=== PATIENT | female | born 1970 | race Caucasian/White ===

== ENCOUNTER → 2017-03-06 | Outpatient (CLI) | payer OTHER ==
[~2017-03-06] MED LIST: CRESTOR20 MG PO; CYCL10TA2 PO; CYCL5TAB PO; HYDR-2762 PO; HYDR-971 PO
[2017-03-06 15:04] LABS: BASO # 0.1 x10^3/uL (0.0-0.2); BASO % 1 % (0-3); EOS % 2 % (0-3); HEMATOCRIT 47.3 % (36.0-47.0); HEMOGLOBIN 15.8 g/dL (12.0-15.5); LYMPH # 2.4 x10^3/uL (1.0-4.8); LYMPH % 24 % (24-48); MEAN CORPUSCULAR HEMOGLOBIN 31 pg (25-35); MEAN CORPUSCULAR HGB CONC 34 g/dL (31-37); MEAN CORPUSCULAR VOLUME 91 fL (79-100); MONO % 5 % (0-9); NEUT % 68 % (31-73); PLATELET COUNT 157 x10^3/uL (140-400); RED BLOOD COUNT 5.17 x10^6/uL (3.50-5.40); RED CELL DISTRIBUTION WIDTH 14.4 % (11.5-14.5); WHITE BLOOD COUNT 9.8 x10^3/uL (4.0-11.0)
[2017-03-06 15:27] LABS: ALBUMIN 3.7 g/dL (3.4-5.0); ALBUMIN/GLOBULIN RATIO 0.9 (1.0-1.7); CALCIUM 8.9 mg/dL (8.5-10.1); CREATININE 0.8 mg/dL (0.6-1.0); GFR 76.6; POTASSIUM 3.9 mmol/L (3.5-5.1); TOTAL BILIRUBIN 0.3 mg/dL (0.2-1.0); TOTAL PROTEIN 7.8 g/dL (6.4-8.2)
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
== END | disposition home or self-care (01) ==
LOC: SURGPAT 16:10
PROVIDERS: ATTEND Neurological Surgery
DX: Z01.812 Encounter for preprocedural laboratory examination (principal)
CPT/HCPCS: 36415; 80053; 85027; 87641

== ENCOUNTER 2017-03-09 08:17 | Inpatient (IN) | payer OTHER ==
[~2017-03-09] VITALS: Ht 149.9 cm; Wt 63.0 kg
[2017-03-09] VITALS (10 sets, daily range): BP systolic 102–129; BP diastolic 69–79
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
[~2017-03-09 08:17] MED LIST changes: +BACITRACIN 50,000 UNIT in IV NORMAL SALINE 1000ML BAG 1,000 ML IRR ONE; +BUPIVACAINE-EPI 0.25%-1:200000 MPF 30 ML VIAL. ONE; -CYCL10TA2 PO; +GELATIN SPONGE SIZE 100. ONE; -HYDR-2762 PO; +HYDROmorphone 2 MG/ML VIAL IV PRN; +IV RINGERS,LACTATED 1000ML 1,000 ML IV SCH; +LIDOCAINE 1% 1 ML SYRINGE. ID PRN; +MORPHINE SULFATE 2 MG/ML DISP.SYRIN. IV PRN; +ONDANSETRON PF 4 MG/2 ML VIAL. IV PRN; +PROCHLORPERAZINE 10 MG/2 ML VIAL. IV PRN; +THROMBIN TOPICAL 20,000 UNIT SPRAY.SYRN KIT TP ONE; +fentaNYL PF VIAL 100 MCG/2 ML VIAL IV PRN
[2017-03-09 09:08] LABS: NEG OBC UR NEG; POS OBC UR POS
[2017-03-09] MEDS ORDERED: PROPOFOL 50 ML IV ONE ×2 (10:02→13:19)
[2017-03-09] MEDS ORDERED: ONDANSETRON PF 4 MG/2 ML VIAL. ONE (10:02)
[2017-03-09] MEDS ORDERED: DEXAMETHASONE SOD PHOS 20 MG/5 ML VIAL. ONE (10:02)
[2017-03-09] MEDS ORDERED: 0.9 % SODIUM CHLORIDE 50 ML VIAL. IJ ONE (10:02)
[2017-03-09] MEDS ORDERED: LIDOCAINE 2% 100 MG/5 ML SYRINGE. ONE (10:02)
[2017-03-09] MEDS ORDERED: MIDAZOLAM HCL/PF 2 MG/2 ML VIAL. ONE (10:02)
[2017-03-09] MEDS ORDERED: PHENYLEPHRINE 10 MG/ML VIAL. ONE (10:02)
[2017-03-09] MEDS ORDERED: REMIFENTANIL 2 MG VIAL. IV ONE (10:02)
[2017-03-09] MEDS ORDERED: PROPOFOL 20 ML IV ONE (10:02)
[2017-03-09] MEDS ORDERED: ROCURONIUM 50 MG/5 ML VIAL. ONE (10:02)
[2017-03-09] MEDS ORDERED: DESFLURANE > 120 MINUTES IH ONE (10:03)
[2017-03-09] MEDS ORDERED: MINERAL OIL/PETROLATUM,WHITE OPHTH OINT 3.5GM TUBE. ONE (10:06)
[2017-03-09] MEDS ORDERED: GLYCOPYRROLATE 1 MG/5 ML VIAL. ONE (11:42)
[2017-03-09] MEDS: VANCOMYCIN 1GM IVPB FOR OMNI 250 ML IV PRN ×2 (12:13→17:06)
[2017-03-09] MEDS ORDERED: ACETAMINOPHEN 325 MG TABLET. PO PRN (14:45)
[2017-03-09] MEDS ORDERED: diphenhydrAMINE 50 MG/ML VIAL IV PRN (14:45)
[2017-03-09] MEDS ORDERED: diphenhydrAMINE HCL 25 MG CAPSULE PO PRN (14:45)
[2017-03-09] MEDS ORDERED: ONDANSETRON PF 4 MG/2 ML VIAL. IV PRN (14:45)
[2017-03-09] MEDS ORDERED: ZOLPIDEM 5 MG TABLET. PO PRN (14:45)
[2017-03-09] MEDS ORDERED: CALCIUM CARBONATE 500 MG TAB.CHEW PO PRN (14:45)
[2017-03-09] MEDS ORDERED: 0.9 % SODIUM CHLORIDE 10 ML DISP.SYRIN. IV PRN (14:45)
[2017-03-09] MEDS ORDERED: MAG HYDROX/ALUMINUM HYD/SIMETH 30 ML ORAL.SUSP PO PRN (14:45)
[2017-03-09] MEDS ORDERED: MAGNESIUM HYDROXIDE 2,400 MG/30 ML ORAL.SUSP. PO PRN (14:45)
[2017-03-09] MEDS: fentaNYL PF VIAL 100 MCG/2 ML VIAL IV PRN ×4 (14:54→16:06)
[2017-03-09] MEDS ORDERED: HYDROcodone/APAP 7.5/325MG 1 TAB TABLET PO PRN (15:00)
[2017-03-09] MEDS ORDERED: fentaNYL PF VIAL 100 MCG/2 ML VIAL IV PRN (15:00)
--- NOTE | 2017-03-09 16:44 | OP ---
DATE OF SURGERY: 03/09/2017 PREOPERATIVE DIAGNOSES: Cervical spinal stenosis with cervical myelopathy, C4-C5. POSTOPERATIVE DIAGNOSIS: Cervical spinal stenosis with cervical myelopathy, C4-C5. OPERATION PERFORMED: Anterior cervical microdiscectomy C4-C5, anterior cervical interbody fusion C4-C5 with allograft and autograft bone, anterior cervical plate C4-C5. The operation was done with EMG monitoring, SSEP monitoring, NIMS monitoring, fluoroscopy, microscopic dissection. SURGEON: Marlo Pond M.D. DIRECTOR MICROBIOLOGY: МАРИНА Clayton, assisted with the surgery. She assisted with the exposure, diskectomy, and placement of the cage and plates as well as the closure. OPERATIVE INDICATIONS: The patient is a pleasant 46-year-old woman who developed intractable numbness in her upper extremities along with pain in her legs and unsteadiness of the gait. On imaging studies, she had focal disc herniation at C4-C5 with spinal cord compression. I recommended an anterior cervical microdiscectomy and fusion. I spoke with her about the operation, the risks, the technique, and the expected postoperative course, and she wished to go ahead. DESCRIPTION OF PROCEDURE: Following general endotracheal anesthesia, the patient was positioned supine on the operating table. The anterior cervical region was then prepped and draped in standard fashion. ARSLAN hose and AV impulse boots were applied for DVT prophylaxis. The microscope was draped. Fluoroscopy was draped and brought into field. Monitoring was established. Vancomycin 1 gram was given. Using fluoroscopic guidance, incision was made from the midline around to the right side in a skin crease directly over the C4-C5 interspace and subcutaneous tissue. Then, I dissected on the medial aspect of the sternocleidomastoid and carotid artery sheath down the anterior cervical vertebral body. I gently reflected the trachea and esophagus contralaterally. There was considerable scar over the anterior areolar tissue. I then worked down through this and exposed the midline and the disc of C4-C5. I confirmed my position fluoroscopically. I placed lateral retractors, wedged in the longus colli muscle and 14-mm pins in C4 and C5. I brought in the microscope, and the remainder of surgery was done with the microscope using a microscopic technique. I distracted the disc space with the disc space entertainment centre manager. I incised the anterior annulus. During this time, I performed a discectomy with pituitary rongeurs. I scrapped away the cartilaginous endplate. Posteriorly, I drilled the posterior spurring and opened the posterior ligament. There was subligamentous disc which was considerable and degenerated, and I began to tease back and remove multiple disc fragments. Some of these scarred down on to the dura, but I did create a plane with a micro hook between the disc and the dura and freed the disc material up and removed it. As I worked, the dura which was focally depressed posteriorly, moved anteriorly. I irrigated it copiously with antibiotic solution. I felt that I had excellent decompression. I then measured and placed a 5-mm interbody fusion cage which was packed with allograft and autograft bone. The autograft bone I obtained from shaving the bone spurs and saving this bone. The plate, cage and bone were placed after I had obtained hemostasis. Then, I placed a 20-mm plate and placed four 13-mm screws which were then locked. I removed the retractors. I obtained images and assured my position was excellent. I irrigated copiously. I explored again. I assured myself of excellent hemostasis. At this point, I felt that I had an excellent decompression and fusion. I closed the platysma with absorbable sutures as well as subcutaneous tissues. Skin was closed with 4-0 subcuticular stitch. The operation went very well. I was quite pleased with the surgery. MARLO POND MD DR: PATSY/adrian JOB#: [id number] / [id number] SUNNI
[2017-03-09] MEDS: POTASSIUM CL 20MEQ D5-0.45NACL 1,000 ML IV SCH (16:50)
[2017-03-09] MEDS ORDERED: ATORVASTATIN CALCIUM 40 MG TABLET. PO SCH (21:00)
[2017-03-09] MEDS: DOCUSATE SODIUM 100 MG CAPSULE. PO SCH (21:02)
[2017-03-09] MEDS: METHOCARBAMOL 750 MG TABLET PO SCH (21:02)
[2017-03-09] MEDS: HYDROcodone/APAP 7.5/325MG 1 TAB TABLET PO PRN (21:03)
[2017-03-10] MEDS ORDERED: VANCOMYCIN 1 GM in IV NORMAL SALINE 250ML 250 ML IV ONE ×2
[2017-03-10 03:00] VITALS: BP 114/71
[2017-03-10] MEDS: HYDROcodone/APAP 7.5/325MG 1 TAB TABLET PO PRN ×2 (04:15→11:09)
[2017-03-10] MEDS: POTASSIUM CL 20MEQ D5-0.45NACL 1,000 ML IV SCH (05:50)
[2017-03-10 06:34] VITALS: BP 119/70
[2017-03-10] MEDS: DOCUSATE SODIUM 100 MG CAPSULE. PO SCH (09:04)
[2017-03-10] MEDS: METHOCARBAMOL 750 MG TABLET PO SCH (09:04)
[2017-03-10 11:17] VITALS: BP 103/72
[2017-03-10] MEDS ORDERED: HYDR-2762 PO (11:49)
[2017-03-10] MEDS ORDERED: CYCL10TA2 PO (11:49)
[2017-03-10] MEDS ORDERED: HYDR-971 PO (11:55)
--- NOTE | 2017-03-10 12:03 | DISCH ---
DISCHARGE INSTRUCTIONS Condition on Discharge Condition on Discharge: Stable Activity After Discharge Activity Instructions for Disc: Activity as tolerated Bathing Instructions: Shower-keep dressing dry (may shower in 48 hours) Lifting Instructions after Dis: No heavy lifting, No pulling or pushing, Do not lift >10 pounds Driving Instructions after Dis: Do not drive Weight Bearing Status after Di: No restrictions Diet after Discharge Additional Diet Restrictions: Resume previous diet Wound Incision Care Wound/Incision Care: Ice to area for comfort Other wound/incision instructi: change dressing if saturated. Contacting the after DC Call your doctor for: Concerns you may have Follow-Up Follow up with: 's nurse in 2 weeks. [phone] YOAN POND MD Mar 10, 2017 12:03
--- NOTE | 2017-03-13 16:50 | PATHOLOGY ---
PATHOLOGY REPORT * * * * * * * * FINAL DIAGNOSIS: Segments of fibrocartilaginous tissue and bone, cervical disc: - Degenerative changes of fibrocartilaginous tissue. COMMENT: There is no evidence of an acute inflammatory process or malignancy. (JPM:; d/t: 03/13/17) REPORT ELECTRONICALLY SIGNED BY: Donaldo Poole M.D. DATE/TIME: 03/13/2017 16:48 * * * * * * * * GROSS PATHOLOGY: Received in formalin labeled "Alina Goldstein cervical disc" are multiple segments of vogel, rubbery, and gritty tissue admixed with bone. The specimen measures 3.0 x 2.5 x 0.5 cm in aggregate dimensions. The tissue is submitted entirely in cassette A1, following decalcification. (CAA; 03/10/2017) INITIAL CPT CODE(S): A; 27457, 07273 Professional services performed [place] [facility] [place] [address] Technical services performed by [facility] at [address] [place] [address]. SPECIMEN(S) RECEIVED: A.Cervical disc CLINICAL HISTORY: Stenosis, cervical herniated disc with radiculopathy PATIENT: ALINA GOLDSTEIN /AGE: 112/07/1970 (Age: 46) PATIENT #: [id number] ALT CASE #: SPECIMEN COLLECTION DATE: 03/09/2017 SPECIMEN RECEIVED DATE: 03/10/2017 [facility] - [address] [place] [address] - PHONE: [phone] * * * END OF REPORT * * *
== END 2017-03-10 12:30 | disposition home or self-care (01) | DRG 472 ==
LOC: SURG 08:17 → 4 SOUTHEST 15:57 → 4 SOUTHWST 16:34
PROVIDERS: ADMIT Neurological Surgery; ATTEND Neurological Surgery
PROC: 0RB30ZZ Excision of Cervical Vertebral Disc, Open Approach (ICD-10-PCS; 2017-03-09)
PROC: 4A10X4Z Monitoring of Central Nervous Electrical Activity, External Approach (ICD-10-PCS; 2017-03-09)
PROC: 0RG10A0 Fusion of Cervical Vertebral Joint with Interbody Fusion Device, Anterior Approach, Anterior Column, Open Approach (ICD-10-PCS; principal; 2017-03-09 11:00)
DX: M48.02 Spinal stenosis, cervical region (principal); M50.021 Cervical disc disorder at C4-C5 level with myelopathy; M50.121 Cervical disc disorder at C4-C5 level with radiculopathy; F17.200 Nicotine dependence, unspecified, uncomplicated; Z87.442 Personal history of urinary calculi
CPT/HCPCS: 76000; 81025; 88304; 88311; 99406; C1713; J1100; J2250; J2405; J2704; J3010; J3370; J3490; J7030; J7050; 97530

== ENCOUNTER → 2019-03-20 | Outpatient (CLI) | payer OTHER ==
[~2019-03-20] MED LIST changes: -BACITRACIN 50,000 UNIT in IV NORMAL SALINE 1000ML BAG 1,000 ML IRR ONE; -BUPIVACAINE-EPI 0.25%-1:200000 MPF 30 ML VIAL. ONE; +CYCL10TA2 PO; -GELATIN SPONGE SIZE 100. ONE; +HYDR-2765 PO; +HYDR-3164 PO; -HYDR-971 PO; -HYDROmorphone 2 MG/ML VIAL IV PRN; -IV RINGERS,LACTATED 1000ML 1,000 ML IV SCH; -LIDOCAINE 1% 1 ML SYRINGE. ID PRN; -MORPHINE SULFATE 2 MG/ML DISP.SYRIN. IV PRN; -ONDANSETRON PF 4 MG/2 ML VIAL. IV PRN; -PROCHLORPERAZINE 10 MG/2 ML VIAL. IV PRN; -THROMBIN TOPICAL 20,000 UNIT SPRAY.SYRN KIT TP ONE; -fentaNYL PF VIAL 100 MCG/2 ML VIAL IV PRN
--- NOTE | 2019-03-20 12:06 | KCIC ---
EXAMINATION: Magnetic resonance imaging (MRI) of the lumbar spine without contrast 03/20/2019 11:45 AM HISTORY: Lumbar radiculopathy and spondylolisthesis. New onset low back pain to the bilateral lower extremities, right greater than left. Numbness in the right lower extremity. TECHNIQUE: Multiplanar multi-weighted MRI of the lumbar spine was performed without intravenous contrast using the standard lumbar spine protocol. Contrast information: None administered. COMPARISON: None available. FINDINGS: The alignment of the lumbar spine is normal. Vertebral bodies demonstrate normal signal intensity on all sequences. There are no compression fractures. The conus medullaris terminates at the level of L1. The distal spinal cord signal intensity is normal. Mild disc height loss with disc desiccation at L5-S1. There is Modic type II endplate degenerative changes along the endplates at this level with mild anterior marginal osteophytosis. There is a faint annular fissure at this level. Limited views of the abdomen and pelvis show no soft tissue abnormality. The aorta is normal. L2-L3: The disc is normal in configuration. There is no facet arthropathy. There is no neuroforaminal stenosis. There is no spinal canal stenosis. L3-L4: The disc is normal in configuration. There is no facet arthropathy. There is no neuroforaminal stenosis. There is no spinal canal stenosis. L4-L5: The disc is normal in configuration. There is mild right and moderate left facet arthropathy. There is no neuroforaminal stenosis. There is no spinal canal stenosis. L5-S1: There is a mild disc bulge with central disc protrusion. There is moderate to severe bilateral facet arthropathy with fluid in the facet joints. There is a posteriorly oriented left facet cyst measuring 10 mm. There is no neuroforaminal stenosis. There is no spinal canal stenosis. IMPRESSION: Mild degenerative changes of the lumbar spine as described in detail above. There is moderate to advanced facet arthropathy at L5-S1 with mild degenerative disc disease. Electronically signed by: Freda Montoya MD (03/20/2019 12:03 PM) [facility]
== END | disposition home or self-care (01) ==
LOC: KCIC MRI 11:04
PROVIDERS: ATTEND Neurological Surgery
DX: M51.17 Intervertebral disc disorders with radiculopathy, lumbosacral region (principal); M51.27 Other intervertebral disc displacement, lumbosacral region; M12.88 Other specific arthropathies, not elsewhere classified, other specified site; M47.896 Other spondylosis, lumbar region
CPT/HCPCS: 72148

== ENCOUNTER → 2019-03-28 | Outpatient (CLI) | payer OTHER ==
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
== END | disposition home or self-care (01) ==
LOC: PNCL 10:00
PROVIDERS: ATTEND Anesthesiology
DX: M54.12 Radiculopathy, cervical region (principal); M79.602 Pain in left arm; M19.90 Unspecified osteoarthritis, unspecified site; I10 Essential (primary) hypertension; E78.00 Pure hypercholesterolemia, unspecified; F17.210 Nicotine dependence, cigarettes, uncomplicated; Z88.0 Allergy status to penicillin; Z98.1 Arthrodesis status; Z85.41 Personal history of malignant neoplasm of cervix uteri; Z86.73 Personal history of transient ischemic attack (TIA), and cerebral infarction without residual deficits
CPT/HCPCS: G0463

== ENCOUNTER → 2019-04-11 | Outpatient (CLI) | payer OTHER ==
[~2019-04-11] MED LIST changes: +IOHEXOL 180 MG/ML 10 ML VIAL. ONE; +methylPREDNISolone ACETATE 40 MG/ML VIAL. ONE; +methylPREDNISolone ACETATE 80 MG/ML VIAL. ONE
--- NOTE | 2019-04-12 03:07 | PAIN ---
DATE OF SERVICE: 04/11/2019 DIAGNOSES: Cervical radiculopathy with cervical degenerative disk disease and post-cervical laminectomy syndrome. HISTORY OF PRESENT ILLNESS: The patient is a 48-year-old female who returns for followup status post initial evaluation and preauthorization for cervical epidural steroid injection, still significant pain in the base of the neck and left upper extremity as it was previously. The patient reports it is a 9 on a scale of 10 at the worse in the last week and 8 on average and 4 is least and is 8 today. The patient reports it is aching, shooting, tingling, stabbing, becoming more constant, again worse with weightbearing, repetitive motions, reaching over her head, with the left arm. The patient reports no new motor or sensory deficits or other changes. Still awaken her from sleep about 4-5 hours at home. PHYSICAL EXAMINATION: VITAL SIGNS: Blood pressure 120/80, pulse is 78, respirations 18, temperature 98.0 degrees Fahrenheit, height is 4 feet 11 inches, weight is 150 pounds. GENERAL: The patient is awake, alert, oriented, appropriate, very pleasant demeanor. HEENT: Head shows normocephalic and atraumatic. Extraocular muscles are intact and symmetrical. Oral cavity: Mucous membranes moist and pink. Dentition is intact. NECK: Shows anterior throat supple without palpable lymphadenopathy noted. Swallow reflex is symmetrical. CHEST: Shows normal with inspection. Breath sounds clear to auscultation bilaterally. HEART: Shows S1, S2 clear. No murmurs auscultated. ABDOMEN: Soft, nontender, nondistended. No palpable organomegaly is noted. No rebound or guarding demonstrated. BACK: Shows spine grossly in the midline. Normal appearing cervical lordotic curvature as well as thoracic kyphotic curvature and lumbar lordotic curvature. Cervical paraspinous muscle shows symmetrical on inspection, on palpation shows some moderate tenderness diffusely bilaterally, but only diffusely without significant radiation. EXTREMITIES: The patient's upper extremities show deep tendon reflexes 2+ in the biceps, triceps tendons. Motor exam is approximately 4 on a scale of 5, but equal with flag car driver strength bicep and tricep flexion and are symmetrical. Peripheral pulses are 2+ radial distribution. No peripheral edema is noted bilaterally. Options were discussed with the patient. The patient's old chart was reviewed as her current medication regimen updated. Current review of systems updated today as well. Reviewed procedure today was cervical epidural steroid injection, the first in this series. Risks were again discussed including, but not limited to bleeding, infection, possibility of epidural hematoma, subsequent neurological compromise, dural puncture, headaches, spinal cord and/or nerve damage, side effects of steroid medication and poor results regarding pain control. The patient understands and wished to proceed. The patient will return to clinic in approximately 2 weeks for followup and was counseled on return appointment, activity level and side effects to be aware of. . DIAGNOSES: Cervical radiculopathy with cervical degenerative disk disease and cervical post-laminectomy syndrome. PROCEDURE: Cervical epidural steroid injection, translaminar approach C6-C7 level using C-arm fluoroscopic guidance under sterile prep and drape using local anesthetic. MEDICATION INJECTED: A total of 120 mg Depo-Medrol plus 5 mL of preservative-free normal saline and 2 mL of Isovue for contrast. CONDITION AT DISCHARGE: Stable. The patient tolerated procedure well, had no complications. MARCIE FLOWERS MD DR: LUCRETIA/adrian JOB#: [id number] / [id number]
== END ==
LOC: PNCL 09:24
PROVIDERS: ATTEND Anesthesiology
DX: M50.123 Cervical disc disorder at C6-C7 level with radiculopathy (principal); M54.2 Cervicalgia
CPT/HCPCS: 62321; J1030; J1040; Q9965

== ENCOUNTER → 2019-04-25 | Outpatient (CLI) | payer OTHER ==
[~2019-04-25] MED LIST changes: -IOHEXOL 180 MG/ML 10 ML VIAL. ONE; -methylPREDNISolone ACETATE 40 MG/ML VIAL. ONE; -methylPREDNISolone ACETATE 80 MG/ML VIAL. ONE
--- NOTE | 2019-04-25 15:54 | PAIN ---
DATE OF SERVICE: 04/25/2019 PROGRESS NOTE FOR PAIN CLINIC DIAGNOSES: Cervical radiculopathy with cervical degenerative disk disease and cervical post-laminectomy syndrome. HISTORY OF PRESENT ILLNESS: The patient is a 48-year-old female who returns for followup status post cervical epidural steroid injection x 1. The patient reports about 60% improvement initially with the numbness in her left arm now completely gone, still some pain in the base of the neck and shoulders and some radiation into the left shoulder and upper extremity, but the numbness part is completely resolved. The patient reports she is feeling much better with increasing her activity, greater distance walking, greater ability to use her left upper extremity, better ability to rotate her neck and shoulders as well. The patient reports she still has some significant pain in the base of the neck and more on the left shoulder and arm. She rates it as 9 on a scale of 10 at its worst over the past week, 7 on average, 5 at its least and is a 5 today. The patient reports it is aching and shooting, radiating in the left upper extremity following a C5-C6 dermatomal distribution. The patient reports it does not awaken her from sleep any longer. She is sleeping about 8 hours a night and is doing much better in that respect. The patient reports no new motor or sensory deficits, no new bowel or bladder incontinence or other complaints. PHYSICAL EXAMINATION: VITAL SIGNS: The patient's blood pressure is 117/77, pulse 77, respirations 18, temperature is 98.3 degrees Fahrenheit. Height is 4 feet 11 inches, weight is 151 pounds. GENERAL: The patient is awake, alert, oriented, appropriate, very pleasant demeanor. HEENT: Head is normocephalic, atraumatic. Extraocular movements are intact and symmetrical. Oral cavity: Mucous membranes moist and pink. Dentition is in poor condition, but intact. NECK: Shows anterior throat supple without palpable lymphadenopathy noted. Swallow reflex symmetrical. CHEST: Shows normal with inspection. Breath sounds clear to auscultation bilaterally. HEART: Shows S1, S2 clear. No murmurs auscultated. ABDOMEN: Soft, nontender, nondistended. BACK: Shows spine grossly in the midline. Cervical paraspinous musculature shows symmetrical on inspection, with a normal appearing to slightly flattened cervical lordotic curvature. The patient's paraspinous musculature in the cervical distribution shows moderate tenderness with palpation, but only diffusely without significant radiation. The patient shows some limited rotational motion secondary to pain with right and left lateral rotation as well as extension, but performs these with some moderate tenderness in the base of the shoulder and to the left shoulder greater than the right with rotation and motion. EXTREMITIES: The patient's upper extremities show deep tendon reflexes 2+ in the biceps and triceps tendons. Motor exam is approximately 4 on a scale of 5, but equal and symmetrical with hydrochloric area supervisor strength, bicep and tricep flexion bilaterally. Peripheral pulses are 2+ in radial distribution. No peripheral edema is noted. PLAN: Options were discussed with the patient. The patient's old chart was reviewed as well as her current medication regimen updated. Current review of systems updated today as well. We will preauthorize the patient for a second cervical epidural steroid injection. She is doing quite well after the first about 60% improvement in the left upper extremity with radicular pattern still in the C5-C6 dermatomal distribution, but significantly improved. The patient will return for a translaminar approach C5-C6 level cervical epidural steroid injection in approximately 1 week after preauthorization is obtained. The patient will continue with stretching and strengthening exercises on her own. Continue with activity as tolerated and will follow up as scheduled. MARCIE FLOWERS MD DR: LUCRETIA/adrian JOB#: [id number] / [id number]
== END | disposition home or self-care (01) ==
LOC: PNCL 09:18
PROVIDERS: ATTEND Anesthesiology
DX: M50.10 Cervical disc disorder with radiculopathy, unspecified cervical region (principal); M96.1 Postlaminectomy syndrome, not elsewhere classified
CPT/HCPCS: G0463

== ENCOUNTER → 2019-05-09 | Outpatient (CLI) | payer OTHER ==
[~2019-05-09] MED LIST changes: +IOHEXOL 180 MG/ML 10 ML VIAL. ONE; +methylPREDNISolone ACETATE 40 MG/ML VIAL. ONE; +methylPREDNISolone ACETATE 80 MG/ML VIAL. ONE
--- NOTE | 2019-05-09 12:34 | PAIN ---
DATE OF SERVICE: 05/09/2019 PROGRESS NOTE FOR PAIN CLINIC DIAGNOSES: Cervical radiculopathy with cervical degenerative disk disease and post-cervical laminectomy syndrome. HISTORY OF PRESENT ILLNESS: The patient is a 48-year-old female who returns for followup status post cervical epidural steroid injection x 1 and preauthorization for second injection. She has obtained this and would like to proceed today. The patient still has pain in the left upper extremity, base of the shoulder, left triceps, anterior and biceps as well as the forearm with radiating pain into the thumb and first finger on the left side. The patient reports it is much better, but still has significant pain in that region. The patient reports it is aching, sharp, shooting, tingling, becoming more constant, radiating with activity with weightlifting or weightbearing in the left upper extremity, reaching overhead. The patient reports it is a 9 on a scale of 10 at its worst in the past week, 7 on average, 5 at its least and is a 5 today. The patient reports no new motor or sensory deficits, no new bowel or bladder incontinence, awakens her from sleep occasionally, but not every night. PHYSICAL EXAMINATION: VITAL SIGNS: The patient's blood pressure 118/80, pulse 84, respirations 18, temperature is 98.4 degrees Fahrenheit, height is 4 feet 11 inches and weight is 153 pounds. GENERAL: The patient is awake, alert, oriented, appropriate, very pleasant demeanor. HEENT: Shows normocephalic, atraumatic. Extraocular movements intact and symmetrical. Oral cavity: Mucous membranes are moist and pink. Dentition is intact. NECK: Shows anterior throat supple without palpable lymphadenopathy noted. Swallow reflex symmetrical. CHEST: Shows normal on inspection. Breath sounds clear to auscultation bilaterally. HEART: Shows S1, S2 clear. No murmurs auscultated. ABDOMEN: Soft, nontender, nondistended. No palpable organomegaly is noted. No rebound or guarding demonstrated. BACK: Shows spine grossly in the midline. Normal appearing thoracic kyphosis and lumbar lordotic curvature. Cervical lordotic curvature shows some slight flattening. With palpation shows some moderate tenderness in the paraspinous musculature, but they are symmetrical on appearance. The patient has good rotational motion of cervical spine, both laterally as well as extension and flexion without significant increase in pain. EXTREMITIES: Upper extremities show deep tendon reflexes 2+ in the biceps and triceps tendons. Motor exam is strong with approximately 4 on a scale of 5, but equal and symmetrical with hogshead stock clerk strength, bicep and tricep flexion. Peripheral pulses are 2+ in radial distribution. No peripheral edema is noted bilaterally. PLAN: Options were discussed with the patient. The patient's old chart was reviewed as her current medication regimen updated. Current review of systems updated today as well. We will proceed with a second in this series of cervical epidural steroid injection today with fluoroscopic guidance. Risks were again discussed including, but not limited to bleeding, infection, possibility of epidural hematoma, subsequent neurologic compromise, dural puncture, headaches, spinal cord and/or nerve damage, side effects of steroid medication and poor results regarding pain control. The patient understands and wished to proceed. The patient will return to the clinic in approximately 2 weeks for followup. She was counseled on return appointment, activity level and side effects to be aware of. DIAGNOSES: Cervical radiculopathy with cervical degenerative disk disease and cervical post-laminectomy syndrome. PROCEDURE: Cervical epidural steroid injection, translaminar approach C6-C7 level using C-arm fluoroscopic guidance under sterile prep and drape using local anesthetic. MEDICATION INJECTED: A total of 120 mg Depo-Medrol plus 5 mL of preservative-free normal saline and 2 mL of Isovue for contrast. CONDITION AT DISCHARGE: Stable. The patient tolerated procedure well, had no complications. MARCIE FLOWERS MD DR: LUCRETIA/adrian JOB#: [id number] / [id number]
== END ==
LOC: PNCL 08:46
PROVIDERS: ATTEND Anesthesiology
DX: M50.123 Cervical disc disorder at C6-C7 level with radiculopathy (principal)
CPT/HCPCS: 62321; J1030; J1040; Q9965

== ENCOUNTER → 2019-06-06 | Outpatient (CLI) | payer OTHER ==
[~2019-06-06] MED LIST changes: -IOHEXOL 180 MG/ML 10 ML VIAL. ONE; -methylPREDNISolone ACETATE 40 MG/ML VIAL. ONE; -methylPREDNISolone ACETATE 80 MG/ML VIAL. ONE
--- NOTE | 2019-06-06 22:14 | PAIN ---
DATE OF SERVICE: 06/06/2019 PROGRESS NOTE FOR PAIN CLINIC DIAGNOSES: Cervical radiculopathy with cervical degenerative disk disease and post-cervical laminectomy syndrome. HISTORY OF PRESENT ILLNESS: The patient is a 48-year-old female who returns for followup status post cervical epidural steroid injection x 2. The patient reports about a 75% improvement initially, now about 50% improvement overall with the pain returning in the left upper extremity with some tingling and numbness, which had gone away initially, now returning in the left hand. The patient reports it is 8 on a scale of 10 at its worst over the past week, 6 on average, 3 at its least and is a 3 today. The patient reports some tingling, aching, radiating pain, numbness, shooting down into the shoulder, into the arm, posterior triceps, into the forearm, both anteriorly and posteriorly into the thumb and first and second fingers with numbness and tingling in the hand as well. The patient reports no new motor or sensory deficits and no new changes, has been awakening her from sleep at night about every 4 hours if she lays on her left side especially. The patient reports no new deficits. PHYSICAL EXAMINATION: VITAL SIGNS: The patient's blood pressure 121/85, pulse 79, respirations 18 and temperature 98.5 degrees Fahrenheit. Height is 4 feet 11 inches and weighs 155 pounds. GENERAL: The patient is awake, alert, oriented, appropriate and very pleasant demeanor. HEENT: Head is normocephalic and atraumatic. Extraocular movements are intact and symmetrical. Oral cavity, mucous membranes are moist and pink. Dentition intact. NECK: Shows anterior throat supple without palpable lymphadenopathy noted. Swallow reflex is symmetrical. CHEST: Shows normal with inspection. Breath sounds are clear to auscultation bilaterally. HEART: Shows S1 and S2 clear. ABDOMEN: Soft and nontender. BACK: Shows spine grossly in the midline. Cervical lordotic curvature slightly flattened. Cervical paraspinous musculature shows symmetrical on inspection, on palpation shows some moderate tenderness diffusely bilaterally but only diffusely without radiation. Good rotational motion is maintained both laterally greater than 45 degrees as well as extension and flexion without significant pain reported. EXTREMITIES: Upper extremities show deep tendon reflexes 2+ in the biceps, triceps tendons. Motor exam is approximately 4 on a scale of 5 but equal and symmetrical with java tech lead strength, bicep and tricep flexion. Peripheral pulses are 2+ radial distribution. No peripheral edema is noted. Options were discussed with the patient. The patient's old chart was reviewed as well as current medications regimen updated. Current review of systems updated today as well. We will preauthorize the patient for a third in the series of cervical epidural steroid injection. She still has radicular qualities into the C5-C6 dermatomal distribution on the left side. We will plan on the C5-C6 level, translaminar epidural steroid injection after approval. The patient will continue to do stretching and strengthening exercises on her own, maintain activity as tolerated and will follow up for a third cervical epidural steroid injection as scheduled. MARCIE FLOWERS MD DR: LUCRETIA/nts JOB#: [id number] / [id number]
== END | disposition home or self-care (01) ==
LOC: PNCL 07:59
PROVIDERS: ATTEND Anesthesiology
DX: M50.10 Cervical disc disorder with radiculopathy, unspecified cervical region (principal); M96.1 Postlaminectomy syndrome, not elsewhere classified
CPT/HCPCS: G0463

== ENCOUNTER → 2019-10-02 | Outpatient (CLI) | payer OTHER ==
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
== END | disposition home or self-care (01) ==
LOC: KCIC MRI 08:52
PROVIDERS: ATTEND Neurological Surgery
DX: M47.812 Spondylosis without myelopathy or radiculopathy, cervical region (principal); M50.21 Other cervical disc displacement, high cervical region; M48.02 Spinal stenosis, cervical region; Z98.1 Arthrodesis status
CPT/HCPCS: 72141

== ENCOUNTER → 2019-11-01 | Outpatient (CLI) | payer OTHER ==
[~2019-11-01] MED LIST changes: +DOCU-153 PO; +HYDR-2761 PO; +METH750T2 PO
[2019-11-01 13:52] LABS: BASO # 0.1 x10^3/uL (0.0-0.2); BASO % 1 % (0-3); EOS # 0.2 x10^3/uL (0.0-0.7); EOS % 2 % (0-3); HEMATOCRIT 48.5 % (36.0-47.0); HEMOGLOBIN 16.2 g/dL (12.0-15.5); LYMPH # 2.6 x10^3/uL (1.0-4.8); LYMPH % 29 % (24-48); MEAN CORPUSCULAR HEMOGLOBIN 31 pg (25-35); MEAN CORPUSCULAR HGB CONC 33 g/dL (31-37); MEAN CORPUSCULAR VOLUME 92 fL (79-100); MONO # 0.4 x10^3/uL (0.0-1.1); MONO % 5 % (0-9); NEUT # 5.6 x10^3/uL (1.8-7.7); NEUT % 64 % (31-73); PLATELET COUNT 180 x10^3/uL (140-400); RED BLOOD COUNT 5.29 x10^6/uL (3.50-5.40); WHITE BLOOD COUNT 8.9 x10^3/uL (4.0-11.0)
[2019-11-01 14:09] LABS: ALBUMIN 3.9 g/dL (3.4-5.0); CALCIUM 9.7 mg/dL (8.5-10.1); CREATININE 0.8 mg/dL (0.6-1.0); GFR 75.9; POTASSIUM 3.8 mmol/L (3.5-5.1); TOTAL BILIRUBIN 0.3 mg/dL (0.2-1.0)
== END | disposition home or self-care (01) ==
LOC: SURGPAT 12:36
PROVIDERS: ATTEND Neurological Surgery
DX: Z01.818 Encounter for other preprocedural examination (principal); M47.22 Other spondylosis with radiculopathy, cervical region; Z98.1 Arthrodesis status; Z88.8 Allergy status to other drugs, medicaments and biological substances; Z88.5 Allergy status to narcotic agent; Z88.1 Allergy status to other antibiotic agents
CPT/HCPCS: 36415; 80053; 85025; 87641

== ENCOUNTER 2019-11-11 06:56 | Observation (INO) | payer OTHER ==
--- NOTE | 2019-11-08 17:26 | HP ---
ADMIT DATE: 11/11/2019 PREOPERATIVE HISTORY AND PHYSICAL. DATE OF SURGERY: 11/11/2019 HISTORY OF PRESENT ILLNESS: The patient is a pleasant 48-year-old who has neck and left shoulder and arm pain. She says the pain is more constant now, the problem began in 10/2018 and has slowly worsened. She says her pain can reach a 10/10 with activity or looking down. Heat or lying down helps her. She is not taking any pain medication. She had 3 cervical epidural steroid injections, which helped her for a couple of weeks each. Since her last visit, she has had 2 falls. She fell once when she tripped over her cat and once because she lost her balance. She also reports low back pain that radiates into her right hip and right lateral thigh. Her leg is also affected on the right side. PAST MEDICAL HISTORY: Headaches or migraines, kidney stones, stomach or intestinal disease, ulcers, arthritis. PAST SURGICAL HISTORY: in 1987, in 2003, 2009, ACDF C4-C5 in 02/2017. FAMILY HISTORY: Cancer, CAD, spine problems, migraine problems, hypertension. 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 Exercises daily. Half a pack per day smoker for 20 years. Drinks zero alcohol. Drinks caffeine regularly. ALLERGIES: AMOXICILLIN, ATORVASTATIN, SIMVASTATIN, LEVOFLOXACIN AND ARTIFICIAL SWEETENERS. CURRENT MEDICATIONS: Crestor and ibuprofen. REVIEW OF SYSTEMS: A 12-point review of systems was obtained and is noncontributory except that mentioned above. PHYSICAL EXAMINATION: NEUROSURGERY EXAMINATION: GENERAL APPEARANCE: Alert, pleasant, no acute distress. HEAD: Normocephalic and atraumatic. SKIN: Warm and dry. NECK AND THYROID: Uyde-[id number]-hixomtuz tenderness with palpation of posterior cervical region, well-healed incision. BACK: Mild tenderness with palpation of lower lumbar spine. MUSCULOSKELETAL: Cervical paraspinal muscle bulk is normal, her cervical restricted range of normal, normal range of motion of the upper extremities bilaterally. EXTREMITIES: No clubbing, cyanosis or edema. NEUROLOGIC: Alert and oriented x 3, normal recent and remote memory. Strength 5/5 in bilateral lower extremities. Sensory was intact to light touch in the upper and lower extremities. Reflexes are present and symmetric in the upper and lower extremities bilaterally. Ambulates with a cane. IMAGING: I reviewed a cervical MRI scan from 02/2019. On that study, there are postoperative changes from an ACDF at C4-C5. At C5-C6, there was a disc osteophyte complex central and left-sided as well as moderately severe bilateral neural foraminal narrowing. ASSESSMENT/ PLAN: The problem has been present for approximately 1 year. She has not improved significantly with epidural steroid injections. I recommended an ACDF at C5-C6. We spoke about the surgery including the rationale, technique, risks, and expected postoperative course. She understands. She would like to proceed. We will make the arrangements. YOAN POND MD DR: PATSY/adrian JOB#: [id number] / [id number] SUNNI
[2019-11-11] VITALS (9 sets, daily range): BP systolic 109–135; BP diastolic 68–86
[~2019-11-11] VITALS: Ht 149.9 cm; Wt 69.4 kg
[~2019-11-11 06:56] MED LIST changes: +BACITRACIN 50,000 UNIT in IV NORMAL SALINE 1000ML BAG 1,000 ML IRR ONE; +BUPIVACAINE-EPI 0.5%-1:200000 MPF 30 ML VIAL. INJ ONE; -DOCU-153 PO; -HYDR-2761 PO; -METH750T2 PO
[2019-11-11] MEDS ORDERED: THROMBIN TOPICAL 20,000 UNIT SPRAY.SYRN KIT TP ONE (07:20)
[2019-11-11] MEDS ORDERED: GELATIN SPONGE SIZE 100. ONE (07:20)
[2019-11-11] MEDS ORDERED: IV RINGERS,LACTATED 1000ML 1,000 ML IV SCH ×2 (08:00→08:12)
[2019-11-11] MEDS ORDERED: ROCURONIUM 50 MG/5 ML VIAL. ONE (08:07)
[2019-11-11] MEDS ORDERED: REMIFENTANIL 2 MG VIAL. IV ONE (08:07)
[2019-11-11] MEDS ORDERED: GLYCOPYRROLATE 1 MG/5 ML VIAL. ONE (08:07)
[2019-11-11] MEDS ORDERED: PHENYLEPHRINE 10 MG/ML VIAL. ONE (08:08)
[2019-11-11] MEDS ORDERED: LIDOCAINE 2% PF 5 ML VIAL. ONE (08:08)
[2019-11-11] MEDS ORDERED: KETOROLAC 30 MG/ML VIAL. ONE (08:08)
[2019-11-11] MEDS ORDERED: ONDANSETRON PF 4 MG/2 ML VIAL. ONE (08:08)
[2019-11-11] MEDS ORDERED: DEXAMETHASONE SOD PHOS 20 MG/5 ML VIAL. ONE (08:08)
[2019-11-11] MEDS ORDERED: PROPOFOL 20 ML IV ONE (08:08)
[2019-11-11] MEDS ORDERED: DESFLURANE > 120 MINUTES IH ONE (08:08)
[2019-11-11] MEDS ORDERED: PROPOFOL 50 ML IV ONE ×2 (08:08→09:31)
[2019-11-11] MEDS ORDERED: ONDANSETRON PF 4 MG/2 ML VIAL. IV PRN (08:15)
[2019-11-11] MEDS ORDERED: MORPHINE SULFATE 2 MG/ML VIAL. IV PRN (08:15)
[2019-11-11] MEDS ORDERED: fentaNYL PF VIAL 100 MCG/2 ML VIAL IV PRN (08:15)
[2019-11-11] MEDS ORDERED: HYDROmorphone 2 MG/ML VIAL IV PRN (08:15)
[2019-11-11] MEDS ORDERED: PROCHLORPERAZINE 10 MG/2 ML VIAL. IV PRN (08:15)
[2019-11-11] MEDS ORDERED: MIDAZOLAM HCL/PF 2 MG/2 ML VIAL. ONE (08:22)
[2019-11-11] MEDS: VANCOMYCIN 1GM IVPB FOR OMNI 250 ML IV PRN ×2 (08:45→12:51)
[2019-11-11] MEDS ORDERED: ePHEDrine PF IN SALINE 50 MG/10 ML SYRINGE. IV ONE (09:17)
[2019-11-11] MEDS ORDERED: NEOSTIGMINE METHYLSULFATE 5 MG/5 ML SYRINGE. ONE (09:45)
[2019-11-11] MEDS ORDERED: fentaNYL PF VIAL 100 MCG/2 ML VIAL ONE (11:22)
[2019-11-11] MEDS ORDERED: PROCHLORPERAZINE 10 MG/2 ML VIAL. ONE (11:22)
[2019-11-11] MEDS: fentaNYL PF VIAL 100 MCG/2 ML VIAL IV PRN ×4 (11:49→12:30)
[2019-11-11] MEDS ORDERED: fentaNYL PF VIAL 100 MCG/2 ML VIAL IVP PRN (12:00)
[2019-11-11] MEDS ORDERED: CALCIUM CARBONATE 500 MG TAB.CHEW PO PRN (12:00)
[2019-11-11] MEDS ORDERED: 0.9 % SODIUM CHLORIDE 10 ML DISP.SYRIN. IV PRN (12:00)
[2019-11-11] MEDS ORDERED: MAGNESIUM HYDROXIDE 2,400 MG/30 ML ORAL.SUSP. PO PRN (12:00)
[2019-11-11] MEDS ORDERED: ONDANSETRON PF 4 MG/2 ML VIAL. IVP PRN (12:00)
[2019-11-11] MEDS ORDERED: MAG HYDROX/ALUMINUM HYD/SIMETH 30 ML ORAL.SUSP PO PRN (12:00)
[2019-11-11] MEDS ORDERED: ACETAMINOPHEN 325 MG TABLET. PO PRN (12:00)
[2019-11-11] MEDS ORDERED: NALOXONE 0.4 MG/ML VIAL. IV PRN (12:00)
[2019-11-11] MEDS ORDERED: diphenhydrAMINE HCL 25 MG CAPSULE PO PRN (12:00)
[2019-11-11] MEDS ORDERED: ZOLPIDEM 5 MG TABLET. PO PRN (12:00)
[2019-11-11] MEDS ORDERED: METHOCARBAMOL 750 MG TABLET PO PRN (12:00)
[2019-11-11] MEDS ORDERED: HYDROcodone/APAP 5/325MG 1 TAB TABLET PO PRN (12:00)
--- NOTE | 2019-11-11 12:45 | NUR ---
RECEIVED FROM RECOVERY. SHE IS RATING HER PAIN A"8-9" MEDICATED WITH FENTANYL. AMBULATED TO THE BATHROOM WITH ASSIST OF 2; UNSTEADY GAIT. SHE WAS ABLE TO VOID WITHOUT PROBLEMS. SHE IS COMPLAINING OF A SORE THROAT AND SOME NUMBNESS AND TWITCHING IN HER LEFT HAND. TWITCHING IS NEW. 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 SHE HAS GOOD PULSES AND MOTION BILATERAL HANDS. DRESSING TO RIGHT LATER ANTERIOR NECK IS CLEAN AND DRY.
[2019-11-11] MEDS: POTASSIUM CL 20MEQ D5-0.45NACL 1,000 ML IV SCH (12:48)
[2019-11-11] MEDS: HYDROcodone/APAP 5/325MG 1 TAB TABLET PO PRN ×2 (14:36→22:55)
[2019-11-11] MEDS ORDERED: VANCOMYCIN 1 GM in IV NORMAL SALINE 250ML 250 ML IV ONE (20:00)
[2019-11-11] MEDS ORDERED: ATORVASTATIN CALCIUM 40 MG TABLET. PO SCH (21:00)
[2019-11-11] MEDS: DOCUSATE SODIUM 100 MG CAPSULE. PO SCH (21:00)
[2019-11-12] MEDS: POTASSIUM CL 20MEQ D5-0.45NACL 1,000 ML IV SCH (02:20)
[2019-11-12 02:48] VITALS: BP 132/82
[2019-11-12 06:54] VITALS: BP 137/85
[2019-11-12] MEDS ORDERED: METH750T2 PO (07:49)
[2019-11-12] MEDS ORDERED: HYDR-2761 PO (07:49)
[2019-11-12] MEDS ORDERED: DOCU-153 PO (07:49)
--- NOTE | 2019-11-12 07:50 | DISCH ---
DISCHARGE INSTRUCTIONS Condition on Discharge Condition on Discharge: Stable Activity After Discharge Activity Instructions for Disc: Activity as tolerated, Avoid exertion Other activity instructions: no driving for a week, soft collar for comfort Bathing Instructions: Shower-keep dressing dry Lifting Instructions after Dis: No heavy lifting, No pulling or pushing, Do not lift >10 pounds Exercise Instruction after Dis: Progress as tolerated Driving Instructions after Dis: Do not drive Weight Bearing Status after Di: No restrictions Diet after Discharge Diet after Discharge: Regular Additional Diet Restrictions: Resume previous diet Diet Texture: Regular Liquid Texture: Thin Liquid Swallowing Supervision: None needed Wound Incision Care Wound/Incision Care: Ice to area for comfort Other wound/incision instructi: may remove dressing in 48 hours if dry then may shower, no soaking Contacting the DRAngie after DC Call your doctor for: Concerns you may have Follow-Up Follow up with: Dr. Pond's nurse in 2 weeks [phone] Treatment/Equipment after DC Adaptive Equipment Issued: Brace/splint YOAN POND MD Nov 12, 2019 07:50
[2019-11-12] MEDS: DOCUSATE SODIUM 100 MG CAPSULE. PO SCH (07:58)
--- NOTE | 2019-11-12 10:21 | NUR ---
Discharge instructions given with prescriptions. Answered questions and concerns. Verbalized understanding. Pt discharged home accompanied by 2 daughters.
--- NOTE | 2019-11-12 18:06 | PATHOLOGY ---
[facility] Accession Number: [id number] . 01 Material submitted: . vertebral column - CERVICAL DISC . 01 Clinical history: . Arthrodesis status cervical spondylosis with radiculopathy . 02 Diagnosis: Segments of fibrocartilaginous tissue and bone, cervical disc: - Degenerative changes of fibrocartilaginous tissue. (JPM:[facility] 11/12/2019) P 11/12/2019 1517 Local . 02 Comment: There is no evidence of an acute inflammatory process or malignancy. (JP:[facility] 11/12/2019) . 02 Electronically signed: . Donaldo Poole MD, Pathologist NPI- [id number] . 01 Gross description: . The specimen is received in formalin, labeled "Stock, Liana, cervical disc" and consists of multiple fragments of soft fibrous pink-vogel tissue and bone measuring 2.6 x 2.0 x 0.5 cm which is entirely submitted in A1 following decalcification. (SDY; 11/11/2019) SYU/SYU 11/11/2019 1622 Local . 02 Pathologist provided ICD-10: M47.892, M54.12 . 02 CPT . 100055, 388422 Specimen Comment: A courtesy copy of this report has been sent to [phone] Specimen Comment: [id number] Specimen Comment: Report sent to / DR GALLARDO Performed at: 01 [facility] [address], [place] [id number] MD Roverto Gonzalez MD Phone: [phone] Performed at: 02 [facility] [address] [place], [place] [id number] MD Donaldo Poole MD Phone: [phone]
--- NOTE | 2019-11-14 16:41 | OP ---
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 PROCEDURES PERFORMED: Removal of hardware C5, anterior cervical microdiscectomy C5-C6, placement of interbody fusion cage C5-C6, anterior cervical plate C5-C6, use of allograft and autograft bone, multimodality electrophysiologic monitoring including EMG and SSEP, fluoroscopy, and microscopic dissection. SURGEON: Marlo Pond M.D. ELECTRODE TURNER AND FINISHER: KASEY Trejo assisted with the surgery. She assisted with the exposure, removal of hardware at C5, anterior microdiscectomy at C5-C6, and placement of anterior hardware C5-C6 as well as interbody fusion cage. INDICATIONS FOR PROCEDURE: The patient is a pleasant 48-year-old, who developed intractable neck and arm pain and was found on imaging studies to have developed adjacent segment degenerative changes related to a previous surgery at C4-C5, which contributed to this problem. There was posterior disc bulging and lateral stenosis and I felt that an anterior cervical microdiscectomy at C5-C6 would be of benefit as she failed conservative measures. I discussed this with her. She understood. She wished to go ahead. DESCRIPTION OF PROCEDURE: Following general endotracheal anesthesia, the patient was positioned supine on the operating room table. The anterior cervical region was then prepped and draped in the standard fashion. ARSLAN hose and AV impulse boots were applied for deep vein thrombosis prophylaxis. Vancomycin 1 gram was given prior to surgery. Using fluoroscopic guidance, an incision was made in the midline around on the right side in the skin crease. I dissected down through the skin and subcutaneous tissue. I dissected around the medial aspect of the sternocleidomastoid and carotid artery sheath after sharply dividing a portion of platysma. I gently reflected the trachea and esophagus laterally and placed [place] anterior cervical retractors. I exposed the inferior aspect of a previous plate. In the C5-C6 region, I confirmed my position fluoroscopically. I brought in the microscope during this time and the remainder of surgery was done with the microscope using microscopic technique. I incised the anterior annulus with #11 blade and performed discectomy with pituitary rongeurs. This was done after I removed the hardware from the inferior C4-C5 plate and placed a distraction pin in C5 as well as one in C6 and distracted. I scraped cartilaginous endplate. I drilled the posterior spurring. I trimmed away the annulus and ligament and I assured myself that both neural foramina were open. I then after carefully preparing the fusion bed tapped in an interbody cage, which was packed with allograft and autograft bone. The autograft bone I obtained by drilling away the spurring and saving this bone and mixing it with allograft bone with the interbody cage. Once the cage was in good position, I buttressed a [place] plate against the inferior aspect of the C4-C5 plate and I placed 14 mm screws, and I confirmed their position fluoroscopically, which looked quite good. I then irrigated with antibiotic solution after removing the retractors and assured myself of perfect hemostasis. I did lock the screws all in position. At this point, I had excellent hemostasis. The interbody fusion cage was perfect in position as well as the anterior plate. I irrigated copiously, closed the wound in layers with absorbable suture, and the skin was closed with 4-0 subcuticular stitch. The operation went very well. The patient awakened uneventfully and was taken to Recovery Room with normal strength in her extremities. I was quite pleased with the surgery. MARLO POND MD DR: PATSY/adrian JOB#: [id number] / [id number] SUNNI
== END 2019-11-12 10:20 | disposition home or self-care (01) ==
LOC: SURG 06:56 → 4 SOUTHEST 12:18
PROVIDERS: ADMIT Neurological Surgery; ATTEND Neurological Surgery
DX: M50.222 Other cervical disc displacement at C5-C6 level (principal)
CPT/HCPCS: 20930; 20937; 22551; 22853; 76000; 96365; 96375; 97162; 99406; A7015; C1713; G0378; G0379; J0171; J1100; J1885; J2001; J2250; J2405; J2704; J2710; J3010; J3370; J3490; J7030; J7050; J0780

== ENCOUNTER → 2020-09-02 | Outpatient (CLI) | payer OTHER ==
[~2020-09-02] MED LIST changes: -BACITRACIN 50,000 UNIT in IV NORMAL SALINE 1000ML BAG 1,000 ML IRR ONE; -BUPIVACAINE-EPI 0.5%-1:200000 MPF 30 ML VIAL. INJ ONE; +DOCU-153 PO; +HYDR-2761 PO; +METH750T2 PO
--- NOTE | 2020-09-02 15:23 | RAD ---
EXAM: DIGITAL DIAGNOSTIC RT, US GUID NDL PLACE/ASPI/BX 09/02/2020 11:20 AM INDICATION: Right breast mass COMPARISON: Right breast ultrasound 06/18/2020 and mammogram 06/12/2020 TECHNIQUE/FINDINGS: The purpose of the procedure, risks and benefits were explained to the patient. Informed consent was obtained. A timeout was performed. The patient was placed supine on the ultrasound table. The complex cystic and solid mass at 9:00 5 cm from the nipple in the right breast was identified and overlying skin marked, prepped, draped in standard sterile fashion. Skin was anesthetized with 1 percent lidocaine. Next, 4 core biopsy samples were obtained with a coaxial 14-gauge biopsy device. Samples were placed in formalin and sent to the laboratory for analysis. A coil biopsy marker was then placed at the biopsy site under ultrasound. [place] were removed, pressure held for hemostasis, and skin cleansed and covered with a dressing. The patient tolerated the procedure well and left in stable condition. Post clip mammogram demonstrates appropriate position of clip in the mass at 9:00 5 cm from the nipple. IMPRESSION:Technically successful ultrasound-guided biopsy of right breast mass and appropriate clip placement. Electronically signed by: Stephanie Rodriguez MD (09/02/2020 3:20 PM) [id number]
--- NOTE | 2020-09-04 15:09 | PATHOLOGY ---
[facility] Accession Number: [id number] . 01 Material submitted: . breast - RIGHT BREAST TISSUE, 9:00, 5CMFN. Modifiers: right, 9:00 . 01 Clinical history: . RIGHT BREAST MASS, ABNORMAL RT MAMMOGRAM . 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 (JPM:real property evaluator; 09/04/2020) MBR 09/04/2020 1404 Local . 02 Comment: There is no atypia or evidence of malignancy. (JPM:real property evaluator; 09/04/2020) . 02 Electronically signed: . Donaldo Poole MD, Pathologist NPI- [id number] . 01 Gross description: . The specimen is received in formalin, labeled "Liana Monsivais, right breast 9:00 5 cm FN" and consists of 5 needle cores of pink-vogel tissue measuring between 0.3 cm and 1.3 cm in length and 0.2 cm each in diameter which are entirely submitted in A1-A3. The specimen was obtained at 11:15 AM on 09/02/2020 and placed in formalin at 11:17 AM. The cold ischemic time is 2 minutes and the total formalin fixation time is greater than 6 hours but less than 72 hours. (SDY; 09/03/2020) SYU/SYU 09/03/2020 1104 Local . 02 Pathologist provided ICD-10: D24.1, N60.21 . 02 CPT . 319525 Specimen Comment: A courtesy copy of this report has been sent to [phone] Specimen Comment: [phone] Specimen Comment: Report sent to / DR GALLARDO Performed at: 01 [facility] [address], [place], [place] [id number] MD Roverto Gonzalez MD Phone: [phone] Performed at: 02 [facility] [address] [place], [place] [id number] MD Donaldo Poole MD Phone: [phone]
== END ==
LOC: US 10:13
PROVIDERS: ATTEND Family Medicine
DX: D24.1 Benign neoplasm of right breast (principal); N60.21 Fibroadenosis of right breast; F17.210 Nicotine dependence, cigarettes, uncomplicated; Z88.8 Allergy status to other drugs, medicaments and biological substances; Z79.899 Other long term (current) drug therapy; Z82.49 Family history of ischemic heart disease and other diseases of the circulatory system; Z83.6 Family history of other diseases of the respiratory system
CPT/HCPCS: 19083; 77065; C1713; 19081; 76942